=== PATIENT | male | born 1975 | race Caucasian/White ===

== ENCOUNTER 2016-08-08 09:35 | Emergency (ER) | payer BC, OTHER ==
[2016-08-08] MEDS ORDERED: DIPH/PERTUSS(ACELL)/TETANUS VAC/PF 0.5 ML SYR (>=10YO) IM ONE (11:10)
--- NOTE | 2016-08-08 11:11 | ER Document Report ---
ED Medical Screen (RME) - General Chief Complaint: Laceration Stated Complaint: LEFT HAND INJURY Notes: Left hand laceration in the first webspace. No sensory or motor deficit noted on initial exam. I have greeted and performed a rapid initial assessment of this patient. A comprehensive ED assessment and evaluation of the patient, analysis of test results and completion of the medical decision making process will be conducted by additional ED providers. TRAVEL OUTSIDE OF THE [place] IN LAST 30 DAYS: No - Related Data Allergies/Adverse Reactions: No Known Allergies Allergy (Verified 08/08/16 09:40) Past Medical History Renal/ Medical History: Denies: Hx Peritoneal Dialysis Physical Exam - Vital signs Vitals: Temp Pulse Resp BP Pulse Ox 98.2 F 81 16 130/73 H 98 08/08/16 09:43 08/08/16 09:43 08/08/16 09:43 08/08/16 09:43 08/08/16 09:43 Course - Vital Signs Vital signs: Temp Pulse Resp BP Pulse Ox 98.2 F 81 16 130/73 H 98 08/08/16 09:43 08/08/16 09:43 08/08/16 09:43 08/08/16 09:43 08/08/16 09:43
[2016-08-08] MEDS ORDERED: CEPHALEXIN 500 MG CAPSULE PO ONE (11:13)
[2016-08-08] MEDS ORDERED: OXYCODONE-ACETAMINOPHEN 5-325 MG TABLET PO ONE (11:13)
[2016-08-08] MEDS ORDERED: LIDOCAINE 1% INJ-PF (10 MG/ML) 30 ML SDV INJ ONE (11:13)
--- NOTE | 2016-08-08 11:18 | ER Document Report ---
HPI - HPI Patient complains to provider of: laceration Pain Level: 4 Context: Patient is a 40-year-old male presents emergency Department complaining of left hand laceration. Patient states that he works for an [employer] company lifting a piece off the top of the air-conditioning and it sliced his left hand. Tetanus is not UTD. not on blood thinners, no other medical problems PCP; Teofilo JACKSON Skin Color: Normal Past Medical History - Social History Smoking Status: Current Every Day Smoker Family History: Reviewed & Not Pertinent Patient has suicidal ideation: No Patient has homicidal ideation: No Renal/ Medical History: Denies: Hx Peritoneal Dialysis Vertical Provider Document - CONSTITUTIONAL Agree With Documented VS: Yes Exam Limitations: No Limitations General Appearance: WD/WN, No Apparent Distress - INFECTION CONTROL TRAVEL OUTSIDE OF THE [place] IN LAST 30 DAYS: No - RESPIRATORY O2 Sat by Pulse Oximetry: 98 - MUSCULOSKELETAL/EXTREMETIES Musculoskeletal/Extremeties: MAEW, FROM, Tender, No Edema - NEURO Level of Consciousness: Awake, Alert, Appropriate Motor/Sensory: No Motor Deficit, No Sensory Deficit - DERM Integumentary: Laceration - measures 4.5 through the web space of the left hand. minimal bleeding Course - Re-evaluation Re-evalutation: 08/08/16 13:20 wound irrigated and cleaned with betadine and saline. deep closure using 5.0 vicryl and 5.0 nylon. DSD applied. - Vital Signs Vital signs: Temp Pulse Resp BP Pulse Ox 98.2 F 81 16 130/73 H 98 08/08/16 09:43 08/08/16 09:43 08/08/16 09:43 08/08/16 09:43 08/08/16 09:43 Procedures - Laceration/Wound Repair Left Hand Wound length (cm): 4.5 Wound's Depth, Shape: Superficial, Linear Laceration pre-procedure: Sterile PPE donned, Betadine prep applied, Sterile drapes applied Anesthetic type: 1% Lidocaine Volume Anesthetic (mLs): 5 Wound explored: Clean, No foreign body removed Irrigated w/ Saline (mLs): 200 Wound Debrided: Minimal Wound Repaired With: Sutures Suture Size/Type: 5:0, Nylon Number of Sutures: 8 Layer Closure?: Yes Deep Layer Suture Size/Type: 5:0, Other - vicryl Number Deep Layer Sutures: 2 Post-procedure wound care: Sterile dressing applied Post-procedure NV exam normal: Yes Complications: No Discharge - Discharge Clinical Impression: Laceration Condition: Good Disposition: HOME, SELF-CARE Instructions: Soap Cleansing ([facility]), Oral Narcotic Medication ([facility]), Antibiotic Ointment Protection ([facility]), Laceration Care ([facility]), Prophylactic Antibiotic ([facility]) , Tetanus Immunization Given ([facility]) Additional Instructions: See your primary care doctor for removal of your stitches in 8-10 days Prescriptions: Cephalexin Monohydrate [Keflex 500 mg Capsule] 500 mg PO BID 7 Days Oxycodone HCl/Acetaminophen [Percocet 5-325 mg Tablet] 1 - 2 tab PO ASDIR PRN # 10 tablet PRN Reason: Forms: Elevated Blood Pressure, Special Work Note, Return to Work Referrals: TRUDY MART MD [Primary Care Provider] - Follow up as needed (8-10 days for removal of your stiches)
[2016-08-08 13:18] VITALS: BP 125/87
== END 2016-08-08 13:18 | disposition home or self-care (01) ==
LOC: ER 09:35
PROC: 0HQGXZZ Repair Left Hand Skin, External Approach (ICD-10-PCS; principal; 2016-08-08)
DX: S61.412A Laceration without foreign body of left hand, initial encounter (principal); F17.200 Nicotine dependence, unspecified, uncomplicated; W45.8XXA Other foreign body or object entering through skin, initial encounter; Y99.0 Civilian activity done for income or pay; Z23 Encounter for immunization
CPT/HCPCS: 99282; 90471; 90715; 12002; J3490

== ENCOUNTER 2017-12-08 21:55 | Emergency (ER) | payer BC, OTHER ==
--- NOTE | 2017-12-08 23:11 | RADIOLOGY REPORT (SQ) ---
EXAM DESCRIPTION: XR HAND 3 OR MORE VIEWS COMPLETED DATE/TME: 12/08/2017 00:00 CLINICAL HISTORY: 41 years, Male, Foreign body. Shot left index with BB gun COMPARISON: None. NUMBER OF VIEWS: Three TECHNIQUE: One PA, one oblique and one lateral view of the left hand LIMITATIONS: None. FINDINGS: A round radiopaque foreign body measuring 4 mm projects in the ventral soft tissues of the distal second phalanx. No acute fracture or dislocation. IMPRESSION: Foreign body at the the distal second phalanx soft tissues as described. 2011 [employer]- All Rights Reserved
--- NOTE | 2017-12-08 23:37 | ER Document Report ---
ED General - General Chief Complaint: Finger Injury Stated Complaint: FINGER INJURY Time Seen by Provider: 12/08/17 23:36 Mode of Arrival: Ambulatory Information source: Patient TRAVEL OUTSIDE OF THE [place] IN LAST 30 DAYS: No - HPI Notes: 41-year-old male was working on his BB gun had his left index finger accidentally over the barrel when discharged into his finger. The patient reports only finger pain. He denies any numbness or paresthesia or other injury. He reports no loss of mobility. He denies any fever or chills. No chest pain or difficulty breathing. Tetanus is up-to-date within the last 3 years. - Related Data Allergies/Adverse Reactions: No Known Allergies Allergy (Verified 08/08/16 09:40) Past Medical History - General Information source: Patient - Social History Smoking Status: Current Every Day Smoker Chew tobacco use (# tins/day): No Frequency of alcohol use: None Drug Abuse: None Lives with: Family Family History: Reviewed & Not Pertinent Patient has suicidal ideation: No Patient has homicidal ideation: No Renal/ Medical History: Denies: Hx Peritoneal Dialysis Review of Systems - Review of Systems -: Yes All other systems reviewed and negative Physical Exam - Vital signs Vitals: Temp Pulse Resp BP Pulse Ox 98.5 F 86 18 110/70 98 12/08/17 22:02 12/08/17 22:02 12/08/17 22:02 12/08/17 22:02 12/08/17 22:02 - Notes Notes: Exam of the left upper extremity shows isolated trauma with puncture wound to the left index finger distal aspect. There is no cellulitis. There is no proximal erythema or adenopathy. There is full range of motion without evidence for tendon injury. Distally, there is good capillary refill. No nailbed injury. Good distal sensation. Course - Re-evaluation Re-evalutation: 12/09/17 01:12 After discussion of risks, alternatives, and benefits, the patient had the left index finger prepped with Denis-Clens then a digital block was performed using lidocaine 1% without epinephrine 7 cc, then the wound was minimally incised longitudinally and metal foreign body was removed without difficulty. The wound was irrigated with saline and then was reapproximated and closed using 2 sutures of 4.0 nonabsorbable suture material. Patient tolerated the procedure well. Complications none. Blood loss negligible. X-rays were negative for fracture or other abnormality. No evidence for tendon injury. - Vital Signs Vital signs: Temp Pulse Resp BP Pulse Ox 97.4 F 57 L 16 103/60 97 12/09/17 00:52 12/09/17 00:52 12/09/17 00:52 12/09/17 00:52 12/09/17 00:52 Discharge - Discharge Clinical Impression: Foreign body finger Condition: Stable Disposition: HOME, SELF-CARE Instructions: Puncture Wound ([facility]) Additional Instructions: Sutures out in 10-12 days. Apply antibiotic ointment to the wound. Return to the emergency department in case of fever, chills, redness or swelling. Referrals: BRE ORELLANA MD [Primary Care Provider] - Follow up as needed
[2017-12-08] MEDS ORDERED: LIDOCAINE 1% INJ-PF (10 MG/ML) 30 ML SDV INJ ONE (23:40)
[2017-12-08] MEDS: IBUPROFEN 800 MG TABLET PO ONE (23:48)
[2017-12-08] MEDS: HYDROCODONE/ACETAMINOPHEN 5-325 MG (6 TAB/ER DISP) PO PRN (23:50)
[2017-12-09 00:53] VITALS: BP 103/60
== END 2017-12-09 00:52 | disposition home or self-care (01) ==
LOC: ER 21:55
PROC: 0JCK0ZZ Extirpation of Matter from Left Hand Subcutaneous Tissue and Fascia, Open Approach (ICD-10-PCS; principal; 2017-12-08)
DX: S61.241A Puncture wound with foreign body of left index finger without damage to nail, initial encounter (principal); X58.XXXA Exposure to other specified factors, initial encounter
CPT/HCPCS: 99283

== ENCOUNTER → 2018-01-28 | Outpatient (CLI) | payer OTHER ==
--- NOTE | 2018-01-28 14:14 | RADIOLOGY REPORT (SQ) ---
EXAM DESCRIPTION: SHOULDER RIGHT 2 OR MORE VIEWS COMPLETED DATE/TIME: 01/28/2018 12:34 pm REASON FOR STUDY: PAIN IN RIGHT SHOULDER M25.511 PAIN IN RIGHT SHOULDER COMPARISON: None. NUMBER OF VIEWS: 2 views. TECHNIQUE: AP and Y view images acquired of the right shoulder. LIMITATIONS: None. FINDINGS: MINERALIZATION: Normal. BONES: No acute fracture or dislocation. No worrisome bone lesions. JOINTS: No dislocation. VISUALIZED LUNGS AND RIBS: No pneumothorax. No rib fracture. SOFT TISSUES: No radiopaque foreign body. OTHER: No other significant finding. IMPRESSION: NEGATIVE STUDY OF THE RIGHT SHOULDER. NO RADIOGRAPHIC EVIDENCE OF ACUTE INJURY. TECHNICAL DOCUMENTATION: JOB ID: [id number] 2010 [employer]- All Rights Reserved Reading location - IP/workstation name: [email or web address]
== END ==
LOC: OD 12:22
PROVIDERS: ATTEND Internal Medicine
DX: M25.511 Pain in right shoulder (principal)

== ENCOUNTER → 2019-04-21 | Outpatient (CLI) | payer OTHER ==
--- NOTE | 2019-04-21 11:06 | RADIOLOGY REPORT (SQ) ---
EXAM DESCRIPTION: WRIST RIGHT 2 VIEWS COMPLETED DATE/TIME: 04/21/2019 10:56 am REASON FOR STUDY: PAIN IN RIGHT HAND M79.641 PAIN IN RIGHT HAND COMPARISON: None. NUMBER OF VIEWS: Two views. TECHNIQUE: AP and lateral radiographic images acquired of the right wrist. LIMITATIONS: None. FINDINGS: MINERALIZATION: Normal. BONES: Nondisplaced transverse fracture of the distal radius. SOFT TISSUES: No soft tissue swelling. No foreign body. OTHER: No other significant finding. IMPRESSION: Nondisplaced distal radius fracture. TECHNICAL DOCUMENTATION: JOB ID: [id number] [employer]- All Rights Reserved Reading location - IP/workstation name: [email or web address]
== END ==
LOC: OD 10:39
PROVIDERS: ATTEND Internal Medicine
DX: S52.591A Other fractures of lower end of right radius, initial encounter for closed fracture (principal); X58.XXXA Exposure to other specified factors, initial encounter; M79.641 Pain in right hand